=== PATIENT | male | born 1975 | race Caucasian/White ===

== ENCOUNTER 2017-01-02 15:27 | Emergency (ER) | payer OTHER ==
[2017-01-02] MEDS ORDERED: Aspirin Low Dose CHEW TAB* 81 MG PO ONE (18:17)
[2017-01-02 18:33] LABS: Hematocrit 43 % (42-52); Hemoglobin 15.2 g/dl (14.0-18.0); Mean Corpuscular HGB Conc 35 g/dl (31-36); Mean Corpuscular Hemoglobin 32 pg (27-31); Mean Corpuscular Volume 92 fL (80-94); Mean Platelet Volume 10 um3 (7.4-10.4); Red Blood Count 4.74 10^6/ul (4.0-5.4); Red Cell Distribution Width 13 % (10.5-15); White Blood Count 6.6 10^3/ul (3.5-10.8)
[2017-01-02 18:46] LABS: Albumin 4.3 g/dL (3.2-5.2); BUN/Creatinine Ratio 11.6 (8-20); Calcium 9.8 mg/dL (8.6-10.3); EGFR African American 92.5 (>60); EGFR Non-African American 71.9 (>60); Globulin 3.1 g/dL (2-4); Total Bilirubin 0.5 mg/dL (0.2-1.0); Total Protein 7.4 g/dL (6.4-8.9)
--- NOTE | 2017-01-02 19:37 | RAD ---
INDICATION: Chest pain. COMPARISON: There are no prior studies available for comparison. TECHNIQUE: A portable view of the chest was obtained. FINDINGS: Cardiac and mediastinal contours appear to be within normal limits. The lungs are clear. No pleural effusion or pneumothorax is seen. IMPRESSION: NO EVIDENCE FOR ACUTE DISEASE.
[2017-01-02 22:17] VITALS: BP 110/80
--- NOTE | 2017-01-03 06:15 | ED ---
Yasmany Dior Nilda, scribed for Josiah Bowers MD on 01/02/17 at 2105 . HPI Chest Pain - HPI Summary HPI Summary: This patient is a 41 year old M presenting to [facility] accompanied by son with a chief complaint of intermittent left-sided chest pain since 2 weeks ago and is still present. The patient rates the pain 3/10 in severity. The chest pain is alleviated by nothing. Patient reports palpitations (no longer present), neck pain (left-sided), constant left shoulder soreness, lightheadedness, and near syncope. Patient denies nausea, SOB, diaphoresis, fever, chills, cough, and congestion. Patient notes that the pain began after a long motorcycle ride 2 weeks ago. Patient is a non-smoker. No PMHx of DM. PMHx includes chronic shoulder and neck pain. - History of Current Complaint Chief Complaint: EDChestPainROMI Hx Obtained From: Patient Onset/Duration: Started Weeks Ago - 2 weeks, Still Present Timing: Intermittent, Lasting Weeks Current Severity: Mild Pain Intensity: 3 Pain Scale Used: 0-10 Numeric Chest Pain Location: Left Lateral Chest Pain Radiates: No Character: Other: - soreness Alleviating Factor(s): Nothing Associated Signs and Symptoms: Positive: Chest Pain, Syncope - near syncope, Palpitations, Other: - lightheadedness - Allergy/Home Medications Allergies/Adverse Reactions: Allergies Allergy/AdvReac Type Severity Reaction Status Date / Time No Known Allergies Allergy Verified 09/15/16 07:59 PMH/Surg Hx/FS Hx/Imm Hx Endocrine/Hematology History: Denies: Hx Diabetes Cardiovascular History: Denies: Hx Hypertension, Hx Pacemaker/ICD History: Denies: Hx Renal Disease Musculoskeletal History: Reports: Other Musculoskeletal History - chronic shoulder and neck pain Sensory History: Denies: Hx Hearing Aid Psychiatric History: Denies: Hx Panic Disorder - Surgical History Surgery Procedure, Year, and Place: VASECTOMY Infectious Disease History: No Infectious Disease History: Denies: Traveled Outside the [place] in Last 30 Days - Family History Known Family History: Negative: Hypertension, Diabetes - Social History Alcohol Use: None Substance Use Type: Reports: None Smoking Status (MU): Never Smoked Tobacco Review of Systems Negative: Fever, Chills, Skin Diaphoresis Positive: Palpitations, Chest Pain Positive: Other - negative congestion. Negative: Shortness Of Breath, Cough Negative: Nausea Positive: Other - neck pain and shoulder pain Neurological: Other - lightheadedness Positive: Syncope - near syncope All Other Systems Reviewed And Are Negative: Yes Physical Exam - Summary Physical Exam Summary: General: well-appearing, no pain distress Skin: warm, color reflects adequate perfusion, dry Head: normal Eyes: EOMI, WES ENT: normal Neck: supple, mild tenderness to palpation to paraspinal muscle in bilateral neck Respiratory: CTA, breath sounds present Cardiovascular: RRR Abdomen: soft, nontender Bowel: present Musculoskeletal: strength/ROM intact, no calf tenderness Neurological: normal, sensory/motor intact, A&O x3 Psychological: affect/mood appropriate Triage Information Reviewed: Yes Vital Signs On Initial Exam: Initial Vitals Temp Pulse Resp BP Pulse Ox 98.8 F 71 17 148/89 97 01/02/17 15:32 01/02/17 15:32 01/02/17 15:32 01/02/17 15:32 01/02/17 15:32 Vital Signs Reviewed: Yes - [place] Coma Scale Coma Scale Total: 15 Diagnostics - Vital Signs Vital Signs Temp Pulse Resp BP Pulse Ox 01/02/17 19:04 76 18 126/89 96 01/02/17 15:32 98.8 F 71 17 148/89 97 - Laboratory Lab Results: Lab Results 01/02/17 01/02/17 01/02/17 Range/Units 17:56 17:56 17:56 WBC 6.6 (3.5-10.8) 10^3/ul RBC 4.74 (4.0-5.4) 10^6/ul Hgb 15.2 (14.0-18.0) g/dl Hct 43 (42-52) % MCV 92 (80-94) fL MCH 32 H (27-31) pg MCHC 35 (31-36) g/dl RDW 13 (10.5-15) % Plt Count 156 (150-450) 10^3/ul MPV 10 (7.4-10.4) um3 Neut % (Auto) 67.1 (38-83) % Lymph % (Auto) 21.8 L (25-47) % Blount % (Auto) 8.3 (1-9) % Eos % (Auto) 2.2 (0-6) % Baso % (Auto) 0.6 (0-2) % Absolute Neuts (auto) 4.4 (1.5-7.7) 10^3/ul Absolute Lymphs (auto) 1.4 (1.0-4.8) 10^3/ul Absolute Monos (auto) 0.5 (0-0.8) 10^3/ul Absolute Eos (auto) 0.1 (0-0.6) 10^3/ul Absolute Basos (auto) 0 (0-0.2) 10^3/ul Absolute Nucleated RBC 0 10^3/ul Nucleated RBC % 0.1 D-Dimer, Quantitative (Less Than 230) ng/mL Sodium 138 (133-145) mmol/L Potassium 4.0 (3.5-5.0) mmol/L Chloride 104 (101-111) mmol/L Carbon Dioxide 28 (22-32) mmol/L Anion Gap 6 (2-11) mmol/L BUN 13 (6-24) mg/dL Creatinine 1.12 (0.67-1.17) mg/dL Est GFR ( Amer) 92.5 (>60) Est GFR (Non-Af Amer) 71.9 (>60) BUN/Creatinine Ratio 11.6 (8-20) Glucose 95 (70-100) mg/dL Lactic Acid 0.6 (0.5-2.0) mmol/L Calcium 9.8 (8.6-10.3) mg/dL Total Bilirubin 0.50 (0.2-1.0) mg/dL AST 19 (13-39) U/L ALT 22 (7-52) U/L Alkaline Phosphatase 68 (34-104) U/L Troponin I 0.00 (<0.04) ng/mL Total Protein 7.4 (6.4-8.9) g/dL Albumin 4.3 (3.2-5.2) g/dL Globulin 3.1 (2-4) g/dL Albumin/Globulin Ratio 1.4 (1-3) 01/02/ Range/Units 17:56 WBC (3.5-10.8) 10^3/ul RBC (4.0-5.4) 10^6/ul Hgb (14.0-18.0) g/dl Hct (42-52) % MCV (80-94) fL MCH (27-31) pg MCHC (31-36) g/dl RDW (10.5-15) % Plt Count (150-450) 10^3/ul MPV (7.4-10.4) um3 Neut % (Auto) (38-83) % Lymph % (Auto) (25-47) % Blount % (Auto) (1-9) % Eos % (Auto) (0-6) % Baso % (Auto) (0-2) % Absolute Neuts (auto) (1.5-7.7) 10^3/ul Absolute Lymphs (auto) (1.0-4.8) 10^3/ul Absolute Monos (auto) (0-0.8) 10^3/ul Absolute Eos (auto) (0-0.6) 10^3/ul Absolute Basos (auto) (0-0.2) 10^3/ul Absolute Nucleated RBC 10^3/ul Nucleated RBC % D-Dimer, Quantitative < 200 (Less Than 230) ng/mL Sodium (133-145) mmol/L Potassium (3.5-5.0) mmol/L Chloride (101-111) mmol/L Carbon Dioxide (22-32) mmol/L Anion Gap (2-11) mmol/L BUN (6-24) mg/dL Creatinine (0.67-1.17) mg/dL Est GFR ( Amer) (>60) Est GFR (Non-Af Amer) (>60) BUN/Creatinine Ratio (8-20) Glucose (70-100) mg/dL Lactic Acid (0.5-2.0) mmol/L Calcium (8.6-10.3) mg/dL Total Bilirubin (0.2-1.0) mg/dL AST (13-39) U/L ALT (7-52) U/L Alkaline Phosphatase (34-104) U/L Troponin I (<0.04) ng/mL Total Protein (6.4-8.9) g/dL Albumin (3.2-5.2) g/dL Globulin (2-4) g/dL Albumin/Globulin Ratio (1-3) Result Diagrams: 01/02/17 17:56 01/02/17 17:56 Lab Statement: Any lab studies that have been ordered have been reviewed, and results considered in the medical decision making process. - Radiology CXR Xray Interpretation: No Acute Changes Radiology Interpretation Completed By: Radiologist - CXR reveals NO EVIDENCE FOR ACUTE DISEASE. ED physician has reviewed this radiology report and agrees. - EKG 1549 Cardiac Rate: NL - 76 BPM EKG Rhythm: Sinus Rhythm ST Segment: Normal EKG Comparison: No Significant Change - 06/18/2014 Chest Pain Course/Dx - Course Course Of Treatment: DISCUSSED RESULTS WITH PATIENT. NO SECOND TROPONIN NEEDED PATIENT'S CHEST PAIN HAD BEEN GOING ON FOR DAYS. F/U PMD. NO CRITICAL CARE TIME. Assessment/Plan: BP noted and advised to follow up with PCP. Medications reviewed. - Diagnoses Provider Diagnoses: Chest pain, Palpitations, Shoulder pain, Neck pain Discharge - Discharge Plan Condition: Stable Disposition: HOME Patient Education Materials: Chest Pain (ED), Palpitations (ED), Shoulder Pain (ED), Neck Pain (ED) Referrals: Waqas Cesar MD [Primary Care Provider] - Additional Instructions: FOLLOW UP WITH YOUR DOCTOR TOMORROW, 01/03/17. RETURN TO THE EMERGENCY DEPARTMENT FOR ANY WORSENING OF YOUR CONDITION; PAIN, SHORTNESS OF BREATH, YOU FEEL ILL OR QUESTIONS OR CONCERNS. The documentation as recorded by the Yasmany reinoso Nilda accurately reflects the service I personally performed and the decisions made by me, Josiah Bowers MD.
== END 2017-01-02 22:16 | disposition home or self-care (01) ==
LOC: ED 15:27
DX: R07.9 Chest pain, unspecified (principal); M54.2 Cervicalgia; R00.2 Palpitations; R55 Syncope and collapse; M25.519 Pain in unspecified shoulder
CPT/HCPCS: 36415; 71010; 80053; 83605; 84484; 85025; 85379; 93005; 99282; A9270-GY

== ENCOUNTER 2018-12-12 23:28 | Emergency (ER) | payer OTHER ==
[2018-12-13] MEDS ORDERED: NS 0.9% 1000 ML** 1,000 ML IV ONE (01:15)
[2018-12-13 01:24] LABS: ABS Eosinophils 0.1 10^3/ul (0-0.6); ABS Lymphocytes 1.6 10^3/ul (1.0-4.8); ABS Monocytes 0.7 10^3/ul (0-0.8); ABS Neutrophils 5.1 10^3/ul (1.5-7.7); Eosinophil % 1.7 %; Hematocrit 46 % (42-52); Lymphocyte % 20.7 %; Mean Corpuscular HGB Conc 35 g/dL (31-36); Mean Corpuscular Hemoglobin 33 pg (27-31); Mean Corpuscular Volume 93 fL (80-94); Platelet Count 155 10^3/uL (150-450); Red Blood Count 4.92 10^6 /uL (4.18-5.48); Red Cell Distribution Width 13 % (10-15); White Blood Count 7.6 10^3/uL (3.5-10.8)
--- NOTE | 2018-12-13 01:25 | ED ---
Abdominal Pain/Male - HPI Summary HPI Summary: Pt is a 43 y/o M presenting to the ED with a chief complaint of abd pain in the LLQ initially onset 1 week ago. He states today the severity has increased. He notes associated subjective fever, diarrhea, chills, and some pain in the RLQ. He states the pain is worse with eating. - History of Current Complaint Chief Complaint: EDAbdPain Stated Complaint: ABD PAIN PER PT Time Seen by Provider: 12/13/18 01:11 Hx Obtained From: Patient Onset/Duration: Gradual Onset, Lasting Days, Still Present Timing: Constant, Lasting Days Severity Initially: Mild Severity Currently: Moderate Pain Intensity: 5 Pain Scale Used: 0-10 Numeric Location: Discrete At: LLQ Radiates: Yes Radiates to: RLQ Character: Cramping Aggravating Factor(s): Food Alleviating Factor(s): Nothing Associated Signs And Symptoms: Positive: Fever, Diarrhea - Allergies/Home Medications Allergies/Adverse Reactions: Allergies Allergy/AdvReac Type Severity Reaction Status Date / Time No Known Allergies Allergy Verified 12/12/18 23:32 Home Medications: Home Medications Levothyroxine TAB* 25 mcg PO DAILY 12/12/18 [History Confirmed 12/12/18] Omeprazole 20 mg PO DAILY PRN 12/12/18 [History Confirmed 12/12/18] PMH/Surg Hx/FS Hx/Imm Hx Previously Healthy: Yes Endocrine/Hematology History: Denies: Hx Diabetes Cardiovascular History: Denies: Hx Hypertension, Hx Pacemaker/ICD History: Denies: Hx Renal Disease Musculoskeletal History: Reports: Other Musculoskeletal History - chronic shoulder and neck pain Sensory History: Denies: Hx Hearing Aid Psychiatric History: Denies: Hx Panic Disorder - Surgical History Surgery Procedure, Year, and Place: VASECTOMY Infectious Disease History: No Infectious Disease History: Denies: Traveled Outside the [place] in Last 30 Days - Family History Known Family History: Negative: Hypertension, Diabetes - Social History Alcohol Use: None Hx Substance Use: No Substance Use Type: Reports: None Hx Tobacco Use: No Smoking Status (MU): Never Smoked Tobacco Review of Systems Positive: Fever, Chills Positive: Abdominal Pain, Diarrhea All Other Systems Reviewed And Are Negative: Yes Physical Exam - Summary Physical Exam Summary: Appearance: Well-appearing, Well-nourished, lying in bed comfortably Skin: Warm, dry, no obvious rash Eyes: sclera anicteric, no conjunctival pallor ENT: mucous membranes moist, pharynx appears normal Neck: Supple, nontender Respiratory: Clear to auscultation, no signs of respiratory distress Cardiovascular: Normal S1, S2. No murmurs. Normal distal pulses in tibial and radial bilaterally. Abdomen: Soft, LLQ tenderness with some guarding but without rebound, normal active bowel sounds present Musculoskeletal: Normal, Strength/ROM Intact Neurological: A&Ox3, awake and alert, mentation is normal, speech is fluent and appropriate Psychiatric: affect is normal, does not appear anxious or depressed Triage Information Reviewed: Yes Vital Signs On Initial Exam: Initial Vitals Temp Pulse Resp BP Pulse Ox 98.1 F 94 18 138/104 96 12/12/18 23:29 12/12/18 23:29 12/12/18 23:29 12/12/18 23:29 12/12/18 23:29 Vital Signs Reviewed: Yes Diagnostics - Vital Signs Vital Signs Temp Pulse Resp BP Pulse Ox 12/12/18 23:29 98.1 F 94 18 138/104 96 - Laboratory Result Diagrams: 12/13/18 01:18 12/13/18 01:18 Lab Statement: Any lab studies that have been ordered have been reviewed, and results considered in the medical decision making process. - CT CT a/p CT Interpretation Completed By: Radiologist Summary of CT Findings: 1. Fatty infiltration of the liver. 2. Minimal hiatal hernia. 3. Otherwise negative CT abdomen/pelvis. No significant diverticulosis and no diverticulitis. No renal or ureteral calculi are evident and there is no evidence of obstructive uropathy. ED physician has reviewed this report. Abdominal Pain Male Course/Dx - Course Course Of Treatment: Pt is a 43 y/o M presenting to the ED with a chief complaint of abd pain in the LLQ initially onset 1 week ago. He states today the severity has increased. He notes associated subjective fever, diarrhea, chills, and some pain in the RLQ. He states the pain is worse with eating. On exam, there is LLQ tenderness with some guarding but no rebound. CT a/p shows: 1. Fatty infiltration of the liver. 2. Minimal hiatal hernia. 3. Otherwise negative CT abdomen/pelvis. No significant diverticulosis and no diverticulitis. No renal or ureteral calculi are evident and there is no evidence of obstructive uropathy. Pt will be d/c'ed with dx of acute abd pain and gastroenteritis. He is stable and agreeable with this plan. - Diagnoses Provider Diagnoses: Acute abdominal pain, Gastroenteritis Discharge ED - Sign-Out/Discharge Documenting (check all that apply): Patient Departure Patient Received Moderate/Deep Sedation with Procedure: No - Discharge Plan Condition: Good Disposition: HOME Prescriptions: Dicyclomine CAP* [Bentyl CAP*] 10 mg PO TID PRN #12 cap PRN Reason: Pain - Moderate Ondansetron ODT TAB* [Zofran 4 MG Odt TAB*] 8 mg PO Q6H PRN #12 tab.odt PRN Reason: Nausea Patient Education Materials: Acute Abdominal Pain (ED) Forms: *Work Release Referrals: Waqas Cesar MD [Primary Care Provider] - 2 Days (if not improving) - Billing Disposition and Condition Condition: GOOD Disposition: Home - Attestation Statements Document Initiated by Scribe: Yes Documenting Scribe: Angela Britton Provider For Whom Ryan is Documenting (Include Credential): Isaac Hoyos MD. Scribe Attestation: Angela Dior, otfed for Isaac Hoyos MD. on 12/15/18 at [id number]. Scribe Documentation Reviewed: Yes Provider Attestation: The documentation as recorded by the Angela reinoso accurately reflects the service I personally performed and the decisions made by Iasac loyola MD. Status of Scribe Document: Viewed
[2018-12-13 01:37] LABS: Urine Appearance Clear; Urine Bilirubin Negative (Negative); Urine Blood Negative (Negative); Urine Color Straw; Urine Glucose Negative (Negative); Urine Ketones Negative (Negative); Urine Nitrite Negative (Negative); Urine Protein Negative (Negative); Urine Specific Gravity 1.008 (1.010-1.030); Urine Urobilinogen Negative (Negative)
[2018-12-13 01:42] LABS: Albumin 4.5 g/dL (3.2-5.2); Albumin/Globulin Ratio 1.5 (1-3); BUN/Creatinine Ratio 10.3 (8-20); C Reactive Protein 4.83 mg/L (<8.01); Calcium 9.6 mg/dL (8.6-10.3); EGFR African American 81.9 (>60); EGFR Non-African American 67.7 (>60); Globulin 3.1 g/dL (2-4); Potassium 4.4 mmol/L (3.5-5.0); Total Bilirubin 0.6 mg/dL (0.2-1.0); Total Protein 7.6 g/dL (6.4-8.9)
[2018-12-13] MEDS ORDERED: Iohexol 300* (CONTRAST) 10 ML SDV IV ONE (03:01)
[2018-12-13 05:54] VITALS: BP 136/93
== END 2018-12-13 05:22 | disposition home or self-care (01) ==
LOC: ED 23:28
DX: K52.9 Noninfective gastroenteritis and colitis, unspecified (principal); K76.0 Fatty (change of) liver, not elsewhere classified; K44.9 Diaphragmatic hernia without obstruction or gangrene; Z79.899 Other long term (current) drug therapy
CPT/HCPCS: 36415; 74177; 80053; 81003; 83605; 83690; 85025; 86140; 96360; 96361; 99283; Q9967